=== PATIENT | female | born 1940 | race Native Hawaiian/Other Pacific Islander ===

== ENCOUNTER 2017-08-20 17:46 | Outpatient (CLI) | payer OTHER ==
[~2017-08-20 17:46] MED LIST: LOSA50TA PO
== END 2017-08-20 20:18 | disposition home or self-care (01) ==
LOC: RAD 17:46
DX: M25.552 Pain in left hip (principal); M25.551 Pain in right hip

== ENCOUNTER → 2017-08-26 08:52 | Outpatient (CLI) | payer OTHER ==
[2017-08-26 09:19] LABS: PLATELET COUNT 502 K/uL (152-353)
[2017-08-26 10:25] LABS: POTASSIUM 3.8 mmol/L (3.6-5.2)
== END | disposition home or self-care (01) ==
LOC: LABW 08-25 15:05
PROVIDERS: Internal Medicine
DX: I10 Essential (primary) hypertension (principal)
CPT/HCPCS: 36415; 80053; 80061; 82306; 85027

== ENCOUNTER 2017-08-28 13:06 | Emergency (ER) | payer OTHER ==
[~2017-08-28] VITALS: Ht 162.6 cm; Wt 54.0 kg
[2017-08-28 14:20] LABS: POTASSIUM 3.7 mmol/L (3.6-5.2)
[2017-08-28 14:22] LABS: PLATELET COUNT 513 K/uL (152-353)
[2017-08-28 15:15] VITALS: BP 149/75; TEMP 98.3
== END 2017-08-28 15:15 | disposition home or self-care (01) ==
LOC: ED 13:06
PROVIDERS: Family Medicine
DX: K59.09 Other constipation (principal); D47.3 Essential (hemorrhagic) thrombocythemia; D72.828 Other elevated white blood cell count
CPT/HCPCS: 36415; 80053; 85027; 96374; 99284; J2405

== ENCOUNTER 2018-05-04 14:21 | Emergency (ER) | payer OTHER ==
[~2018-05-04] VITALS: Ht 162.6 cm; Wt 49.2 kg
[2018-05-04 16:41] VITALS: BP 150/86; TEMP 98.2
== END 2018-05-04 16:41 | disposition home or self-care (01) ==
LOC: ED 14:21
PROC: 09QK0ZZ Repair Nasal Mucosa and Soft Tissue, Open Approach (ICD-10-PCS; principal; 2018-05-04)
DX: S01.21XA Laceration without foreign body of nose, initial encounter (principal); W20.8XXA Other cause of strike by thrown, projected or falling object, initial encounter; Y92.89 Other specified places as the place of occurrence of the external cause
CPT/HCPCS: 99282

== ENCOUNTER 2018-12-29 08:57 | Outpatient (CLI) | payer OTHER ==
[2018-12-29 10:13] LABS: PLATELET COUNT 738 K/uL (152-353)
[2018-12-29 10:35] LABS: POTASSIUM 3.2 mmol/L (3.6-5.2)
== END 2018-12-29 21:01 | disposition home or self-care (01) ==
LOC: LABW 08:57
PROVIDERS: Internal Medicine
DX: I10 Essential (primary) hypertension (principal); M06.80 Other specified rheumatoid arthritis, unspecified site; R41.3 Other amnesia; R26.81 Unsteadiness on feet; E55.9 Vitamin D deficiency, unspecified; E53.8 Deficiency of other specified B group vitamins; M81.0 Age-related osteoporosis without current pathological fracture
CPT/HCPCS: 36415; 80053; 80061; 81000; 82306; 82607; 84439; 84443; 85027; 85651; 86038; 86430; 87077; 87086; 87088; 87186

== ENCOUNTER 2019-01-12 14:00 | Outpatient (CLI) | payer OTHER | END 2019-01-12 23:44 | disposition home or self-care (01) | LOC: LABW 14:00 | DX: G31.84 Mild cognitive impairment of uncertain or unknown etiology (principal); R63.8 Other symptoms and signs concerning food and fluid intake; M06.80 Other specified rheumatoid arthritis, unspecified site; R26.0 Ataxic gait; I10 Essential (primary) hypertension | CPT/HCPCS: 36415; 80076; 82085; 82607; 83090; 84443; 85651; 86140 ==

== ENCOUNTER 2019-03-16 12:41 | Outpatient (CLI) | payer OTHER | END 2019-03-16 19:53 | disposition home or self-care (01) | LOC: RAD 12:41 | DX: M05.79 Rheumatoid arthritis with rheumatoid factor of multiple sites without organ or systems involvement (principal); Z79.899 Other long term (current) drug therapy ==

== ENCOUNTER 2019-03-22 14:54 | Outpatient (CLI) | payer OTHER | END 2019-03-22 23:59 | LOC: LABW 14:54 | DX: R94.5 Abnormal results of liver function studies (principal); M06.09 Rheumatoid arthritis without rheumatoid factor, multiple sites; M81.0 Age-related osteoporosis without current pathological fracture; Z79.899 Other long term (current) drug therapy | CPT/HCPCS: 36415; 82784; 83883; 83970; 84075; 84080; 84155; 84165 ==

== ENCOUNTER 2019-03-27 14:37 | Outpatient (CLI) | payer OTHER | END 2019-03-27 23:59 | disposition home or self-care (01) | LOC: LAB 14:37 | DX: M06.09 Rheumatoid arthritis without rheumatoid factor, multiple sites (principal); M81.0 Age-related osteoporosis without current pathological fracture; Z79.899 Other long term (current) drug therapy | CPT/HCPCS: 82340 ==

== ENCOUNTER 2019-04-09 02:45 | Emergency (ER) | payer OTHER ==
[~2019-04-09] VITALS: Ht 162.6 cm; Wt 49.0 kg
[2019-04-09 02:50] VITALS: TEMP 98.1
[2019-04-09 03:34] LABS: PLATELET COUNT 358 K/uL (152-353)
[2019-04-09 03:41] LABS: POTASSIUM 3.7 mmol/L (3.6-5.2)
[2019-04-09 05:20] VITALS: BP 150/72
== END 2019-04-09 05:20 | disposition home or self-care (01) ==
LOC: ED 02:45
PROVIDERS: Family Medicine
DX: F03.91 Unspecified dementia, unspecified severity, with behavioral disturbance (principal); E86.0 Dehydration
CPT/HCPCS: 36415; 80053; 81000; 85027; 96360; 99283; 99284

== ENCOUNTER 2019-09-17 11:58 | Emergency (ER) | payer OTHER ==
[~2019-09-17] VITALS: Ht 162.6 cm; Wt 49.0 kg
[2019-09-17 12:05] VITALS: TEMP 98
[2019-09-17 12:53] LABS: PLATELET COUNT 367 K/uL (152-353)
[2019-09-17 13:06] LABS: POTASSIUM 3.3 mmol/L (3.6-5.2); SODIUM 143 mmol/L (136-145)
[2019-09-17 13:15] LABS: PARTIAL THROMBOPLASTIN TIME 23.8 SECONDS (24.5-33.6)
[2019-09-17 14:10] VITALS: BP 134/78
== END 2019-09-17 14:20 | disposition home or self-care (01) ==
LOC: ED 11:58
PROVIDERS: Hospitalist
DX: R42 Dizziness and giddiness (principal); I16.0 Hypertensive urgency
CPT/HCPCS: 80053; 82550; 82553; 83880; 84484; 85027; 85610; 85730; 93005; 99283

== ENCOUNTER 2019-12-15 10:30 | Outpatient (CLI) | payer OTHER ==
[2019-12-15 11:27] LABS: PLATELET COUNT 417 K/uL (152-353)
== END 2019-12-15 19:02 | disposition home or self-care (01) ==
LOC: LAB 10:30
PROVIDERS: Internal Medicine
DX: F03.90 Unspecified dementia, unspecified severity, without behavioral disturbance, psychotic disturbance, mood disturbance, and anxiety (principal); I10 Essential (primary) hypertension; M13.88 Other specified arthritis, other site
CPT/HCPCS: 80053; 80061; 81000; 84439; 84443; 85027; 85651; 86200

== ENCOUNTER 2020-04-04 14:55 | Emergency (ER) | payer OTHER ==
[~2020-04-04] VITALS: Ht 157.5 cm; Wt 47.6 kg
[2020-04-04 14:57] VITALS: TEMP 99.8
[2020-04-04 18:22] VITALS: BP 153/81
== END 2020-04-04 18:22 | disposition home or self-care (01) ==
LOC: ED 14:55
DX: S22.31XA Fracture of one rib, right side, initial encounter for closed fracture (principal); S72.111A Displaced fracture of greater trochanter of right femur, initial encounter for closed fracture; W08.XXXA Fall from other furniture, initial encounter; Y92.89 Other specified places as the place of occurrence of the external cause
CPT/HCPCS: 96374; 99284; J2405